=== PATIENT | male | born 1980 | race American Indian/Alaskan Native ===

== ENCOUNTER 2017-03-10 11:25 | Emergency (ER) | payer OTHER ==
[2017-03-10 11:25] VITALS: BMI 33.5
--- NOTE | 2017-03-10 13:41 | ED PDOC ---
HPI: Chest Pain Time Seen by Provider: 03/10/17 11:40 Chief Complaint (Nursing): Chest Pain Chief Complaint (Provider): chest pain History Per: Patient History/Exam Limitations: no limitations Onset/Duration Of Symptoms: Days (2) Current Symptoms Are (Timing): Intermittent Episodes Context: Other (cough/sneeze) Severity: Mild Quality: Sharp Associated Symptoms: denies: Nausea, Dyspnea, Diaphoresis Modifying Factors: Other Indicated Below Exacerbating Factors: Other (cough/sneeze) Alleviating Factors: None Additional Complaint(s): 36yo prior well male for last 2-3 days c/o left sided chest pain when he coughs or sneezes. Denies SOB, syncope, hemoptysis, abdominal pain, bruising or weakness. Cough is only mild, dry and intermittent. Past Medical History Reviewed: Historical Data, Nursing Documentation, Vital Signs Vital Signs: Last Vital Signs Temp 98.0 F 03/10/17 15:23 Pulse 75 03/10/17 15:23 Resp 19 03/10/17 15:23 BP 132/74 03/10/17 15:23 Pulse Ox 98 03/10/17 15:23 - Medical History PMH: Asthma, Diverticulitis Denies: HIV, Chronic Kidney Disease - Family History Family History: States: Unknown Family Hx - Social History Current smoker - smoking cessation education provided: No - Home Medications Home Medications: Ambulatory Orders Medication Instructions Recorded Naproxen [Naprosyn] 500 mg PO BID PRN #14 tablet 03/10/17 - Allergies Allergies/Adverse Reactions: Allergies Allergy/AdvReac Type Severity Reaction Status Date / Time No Known Allergies Allergy Verified 03/10/17 11:40 KENNEY Risk Score for UA/NSTEMI - KENNEY Risk Score Age > 64: NO 3 or more CAD Risk Factors: NO Known CAD (Stenosis greater than 50%): NO Aspirin use in past 7 days: NO Severe Angina: NO EKG ST changes greater than 0.5mm: NO KENNEY Score: 0 Risk %: 5% Review of Systems ROS Statement: Except As Marked, All Systems Reviewed And Found Negative Constitutional: Negative for: Fever, Sweats Cardiovascular: Positive for: Chest Pain. Negative for: Palpitations, Orthopnea , Paroxysmal Noc. Dyspnea, Edema, Light Headedness Respiratory: Positive for: Cough. Negative for: Shortness of Breath, Hemoptysis Gastrointestinal: Negative for: Nausea, Vomiting Genitourinary Male: Negative for: Dysuria, Frequency Musculoskeletal: Negative for: Neck Pain, Shoulder Pain Skin: Negative for: Rash, Lesions, Jaundice Neurological: Negative for: Weakness, Numbness, Headache Psych: Negative for: Anxiety Physical Exam - Reviewed Nursing Documentation Reviewed: Yes Vital Signs Reviewed: Yes - Physical Exam Appears: Positive for: Well, Non-toxic, No Acute Distress Head Exam: Positive for: ATRAUMATIC, NORMAL INSPECTION, NORMOCEPHALIC Skin: Positive for: Normal Color, Warm, DRY Eye Exam: Positive for: EOMI, Normal appearance, PERRL ENT: Positive for: Normal ENT Inspection. Negative for: Pharyngeal Erythema, Tonsillar Swelling Neck: Positive for: Normal Cardiovascular/Chest: Positive for: Regular Rate, Rhythm Respiratory: Positive for: Normal Breath Sounds. Negative for: Decreased Breath Sounds, Accessory Muscle Use, Wheezing, Respiratory Distress Gastrointestinal/Abdominal: Positive for: Soft. Negative for: Tenderness, Guarding Back: Positive for: Normal Inspection. Negative for: Decreased ROM Extremity: Positive for: Normal ROM. Negative for: Deformity, Swelling Neurologic/Psych: Positive for: Alert, Oriented. Negative for: Motor/Sensory Deficits - ECG ECG: Positive for: Interpreted By Me ECG Rhythm: Positive for: Sinus Bradycardia, Nonspecific Changes Rate: 58 O2 Sat by Pulse Oximetry: 100 Pulse Ox Interpretation: Normal Medical Decision Making Medical Decision Making: CXR ?lucency L base on my read Obtain CT chest r/o small pneumothorax, negative per radiologist Followup PMD Disposition - Clinical Impression Clinical Impression: Chest pain - Patient ED Disposition Is Patient to be Admitted: No Counseled Patient/Family Regarding: Studies Performed, Diagnosis, Need For Followup - Disposition Referrals: Mak Bello MD [Staff Provider] - Disposition: Routine/Home Disposition Time: 15:01 Condition: STABLE Additional Instructions: Followup with primary doctor in 2-3 days. Return to ER for any worse or new symptoms. Prescriptions: Naproxen [Naprosyn] 500 mg PO BID PRN #14 tablet PRN Reason: Pain, Moderate (4-7) Instructions: Chest Pain (ED) Forms: [employer] (Armenian)
--- NOTE | 2017-03-10 13:55 | CT ---
PROCEDURE: CT Chest without contrast HISTORY: left chest pain COMPARISON: None. TECHNIQUE: Contiguous axial images were obtained through the chest without intravenous contrast enhancement. Sagittal and coronal reconstructions were performed. Radiation dose (DLP): 701.47 mGy-cm. This CT exam was performed using one or more of the following dose reduction techniques: Automated exposure control, adjustment of the mA and/or kV according to patient size, and/or use of iterative reconstruction technique. FINDINGS: LUNGS: Clear lungs. Visualized airway clear. MEDIASTINUM: Unremarkable thoracic aorta. No aneurysm. Normal sized heart. Main pulmonary artery unremarkable. No vascular congestion. No lymphadenopathy. PLEURA: No pleural fluid. No pneumothorax. BONES: No fracture. No destructive lesion. UPPER ABDOMEN: Grossly unremarkable. OTHER FINDINGS: None. IMPRESSION: Unremarkable non-contrast enhanced CT of the chest.
--- NOTE | 2017-03-10 14:14 | RAD ---
HISTORY: L chest pain w cough COMPARISON: 07/17/2015 TECHNIQUE: Chest PA and lateral FINDINGS: LUNGS: No active pulmonary disease. PLEURA: No significant pleural effusion identified. No pneumothorax apparent. CARDIOVASCULAR: Normal. OSSEOUS STRUCTURES: No significant abnormalities. VISUALIZED UPPER ABDOMEN: Normal. OTHER FINDINGS: None. IMPRESSION: No active disease.
[2017-03-10 15:25] VITALS: BP 132/74; RESP 19; TEMP 98
--- NOTE | 2017-03-11 08:25 | CARD ---
APPROVED REPORT EKG Measurement Heart [id number] <Conclusion> Sinus bradycardia Otherwise normal ECG
[2017-03-16 13:33] VITALS: PULSE 58; O2SAT 100
== END 2017-03-10 15:26 | disposition home or self-care (01) ==
LOC: H.ER 11:25
DX: R07.9 Chest pain, unspecified (principal); J45.909 Unspecified asthma, uncomplicated

== ENCOUNTER 2018-10-05 14:22 | Emergency (ER) | payer OTHER ==
[2018-10-05 14:22] VITALS: BMI 33.5
[2018-10-05 14:35] VITALS: RESP 18; O2SAT 98
[2018-10-05] MEDS ORDERED: guaiFENesin 200 mg/10 ml Syrup UD PO STA (15:39)
[2018-10-05] MEDS ORDERED: Naproxen 500 MG TAB PO STA (15:39)
--- NOTE | 2018-10-05 15:42 | ED PDOC ---
HPI: CCC, URI, Sore Throat Time Seen by Provider: 10/05/18 15:31 Chief Complaint (Nursing): Cough, Cold, Congestion Chief Complaint (Provider): Cough, congestion History Per: Patient History/Exam Limitations: no limitations Onset/Duration Of Symptoms: Days (x3) Current Symptoms Are (Timing): Still Present Additional Complaint(s): 38 y/o male presents to the ER for evaluation of nasal congestion, throat pain, and cough productive of yellow/orange colored phlegm for 3 days. He denies ear pain, abdominal pain, nausea, vomiting, diarrhea, chest pain, hemoptysis, fever, recent travel, or sick contacts. Patient states he took Theraflu earlier today with no relief. PMD: Jatin Temple Past Medical History Reviewed: Historical Data, Nursing Documentation, Vital Signs Vital Signs: Last Vital Signs Temp 98.4 F 10/05/18 14:34 Pulse 99 H 10/05/18 14:34 Resp 18 10/05/18 14:34 BP 152/82 H 10/05/18 14:34 Pulse Ox 98 10/05/18 14:34 Primary Care Provider: Jatin Cohn - Medical History PMH: Asthma, Diverticulitis - Surgical History Other surgeries: laparoscopy for diverticulitis - Family History Family History: States: Unknown Family Hx - Social History Current smoker - smoking cessation education provided: No Alcohol: Social Drugs: Denies - Home Medications Home Medications: Ambulatory Orders Medication Instructions Recorded Naproxen [Naprosyn] 500 mg PO BID PRN #14 tablet 03/10/17 Fluticasone Nasal [Flonase] 1 actuation NS DAILY PRN #1 unit 10/05/18 Loratadine/Pseudoephedrine 1 each PO DAILY PRN #14 tab.er.24h 10/05/18 [Claritin-D 24 Hour Tablet] Promethazine DM [Phenergan DM 5 ml PO Q6 PRN #150 ml 10/05/18 Syrup] - Allergies Allergies/Adverse Reactions: Allergies Allergy/AdvReac Type Severity Reaction Status Date / Time No Known Allergies Allergy Verified 10/05/18 14:34 Review of Systems ROS Statement: Except As Marked, All Systems Reviewed And Found Negative Constitutional: Negative for: Fever ENT: Positive for: Nose Congestion. Negative for: Ear Pain Cardiovascular: Negative for: Chest Pain Respiratory: Positive for: Cough (yellow phlegm) Gastrointestinal: Negative for: Nausea, Vomiting, Abdominal Pain, Diarrhea Physical Exam - Reviewed Nursing Documentation Reviewed: Yes Vital Signs Reviewed: Yes - Physical Exam Comments: GENERAL APPEARANCE: Patient is awake, alert, oriented x 3, in no acute distress. Resting comfortably. SKIN: Warm, dry; (-) cyanosis. NECK: Supple, FROM ENMT: TMs: nunbulging and nonerythematous. Mucous membranes moist. Airway patent: (-) stridor. Pharynx: uvula midline (+) erythema, (+) 2+ tonsillar hypertrophy, (-) exudate. (-) sinus tenderness. CHEST AND RESPIRATORY: (-) rhonchi, (-) rales, (-) wheezes, (-) retractions; breath sounds equal bilaterally. Respirations even and nonlabored. HEART AND CARDIOVASCULAR: (-) irregularity NEURO AND PSYCH: Mental status as above. Cranial nerves grossly intact; strength symmetric. Gait: steady. Speech: clear. (-) facial asymmetry - ECG O2 Sat by Pulse Oximetry: 98 (RA) Pulse Ox Interpretation: Normal Medical Decision Making Medical Decision Making: Initial Impression: Pharyngitis, cough Initial Plan: --Naproxen 500mg PO --Robitussin 200mg PO --Throat culture --Rapid strep --Re-evaluation 1650 Rapid Strep: negative Repeat BP: 138/78 Repeat HR: 82 On re-evaluation, patient reports improvement of symptoms. On exam, patient remains AAOx3, in no acute distress. Lungs clear to auscultation, cardiac RRR, repeat neuro exam shows no focal findings. VSS, stable for discharge. Lab/Diagnostic results d/w the patient in great detail. Diagnosis of pharyngitis, cough, likely viral URI d/w the patient. Based on history, exam and diagnostic results, plan will be for outpatient follow up with PMD. Patient instructed to follow-up with pmd / referral provided / the clinic in 1- 2 days without fail. Advised to take medication as prescribed. Return to the emergency room at any time for any new or worsening symptoms. Patient states he fully agrees with and understands discharge instructions. States that he agrees with the plan and disposition. Verbalized and repeated discharge instructions and plan. I have given the patient opportunity to ask any additional questions. Scribe Attestation: Documented by Armand Schafer acting as a scribe for Airam MAYES. Provider Scribe Attestation: All medical record entries made by the Scribe were at my direction and personal ly dictated by me. I have reviewed the chart and agree that the record accurately reflects my personal performance of the history, physical exam, medical decision making, and the department course for this patient. I have also personally directed, reviewed, and agree with the discharge instructions and disposition. Disposition - Clinical Impression Clinical Impression: Cough, Sore throat, Viral respiratory infection - Patient ED Disposition Is Patient to be Admitted: No Counseled Patient/Family Regarding: Studies Performed, Diagnosis, Need For Followup, Rx Given - Disposition Referrals: Jatin Cohn MD [Staff Provider] - Disposition: Routine/Home Disposition Time: 16:50 Condition: STABLE Additional Instructions: The emergency medical care you received today was directed at your acute symptoms. If you were prescribed any medication, please fill it and take as directed. It may take several days for your symptoms to resolve. Return to the Emergency Department if your symptoms worsen, do not improve, or if you have any other problems. Please contact your doctor in 2 days for re-evaluation and follow up / or call one of the physicians/clinics you have been referred to that are listed on the Patient Visit Information form that is included in your discharge packet. Bring any paperwork you were given at discharge with you along with any medications you are taking to your follow up visit. Our treatment cannot replace ongoing medical care by a primary care provider (PCP) outside of the emergency department. Prescriptions: Fluticasone Nasal [Flonase] 1 actuation NS DAILY PRN #1 unit PRN Reason: congestion Loratadine/Pseudoephedrine [Claritin-D 24 Hour Tablet] 1 each PO DAILY PRN #14 tab.er.24h PRN Reason: cold symptoms Promethazine DM [Phenergan DM Syrup] 5 ml PO Q6 PRN #150 ml PRN Reason: Cough Instructions: Viral Pharyngitis, Cough in Adults, Sore Throat in Adults, Cough, Runny Nose, and the Common Cold Forms: [employer] (Sinhala) Print Language: ARMENIAN - POA Present On Arrival: None Results - Lab Results Lab Results: 10/05/18 16:19 Grp A Beta Strep Ag Negative
[2018-10-05] MEDS ORDERED: guaiFENesin 200 mg/10 ml Syrup UD ONE (16:11)
[2018-10-05] MEDS ORDERED: Naproxen 500 MG TAB PO ONE (16:11)
[2018-10-05 17:32] VITALS: BP 138/78; PULSE 82; TEMP 98.2
== END 2018-10-05 17:32 | disposition home or self-care (01) ==
LOC: H.ER 14:22
DX: R05 Cough (principal); J02.9 Acute pharyngitis, unspecified; J06.9 Acute upper respiratory infection, unspecified